=== PATIENT | female | born 1950 | race Caucasian/White ===

== ENCOUNTER 2018-02-27 20:53 | Emergency (ER) | payer OTHER, BC ==
[~2018-02-27] VITALS: Ht 154.9 cm; Wt 77.2 kg
[~2018-02-27 20:53] MED LIST: ATORVASTATIN CA80 MG PO; B-100 COMPLEX1 EACH PO; CALCIUM + D3 E1 EACH PO; CYMBALTA60 MG PO; FISH OIL 1,0001 EAC7 PO; GLUCOSAMINE &1 EAC1 PO; LEVOTHYROXINE50 MCG PO; LISINOPRIL5 MG PO; LO-DOSE ASPIRIN81 M1 PO; MELOXICAM15 MG PO; NITROGLYCERIN0.4 MG SL; OMEPRAZOLE20 M2 PO; VITAMIN D1000 UNIT PO
[2018-02-28] MEDS ORDERED: ULTRAM50 MG PO (00:06)
[2018-02-28 00:16] VITALS: BP 137/87
== END 2018-02-28 00:17 | disposition home or self-care (01) ==
LOC: EME 20:53
DX: M25.561 Pain in right knee (principal); Z86.73 Personal history of transient ischemic attack (TIA), and cerebral infarction without residual deficits; E11.9 Type 2 diabetes mellitus without complications; E78.5 Hyperlipidemia, unspecified; K21.9 Gastro-esophageal reflux disease without esophagitis; Z79.82 Long term (current) use of aspirin; Z88.0 Allergy status to penicillin; Z88.6 Allergy status to analgesic agent; Z88.5 Allergy status to narcotic agent
CPT/HCPCS: 73564; 93971; 99281; 99284